=== PATIENT | female | born 1970 | race African-American/Black ===

== ENCOUNTER 2018-06-16 20:39 | Emergency (ER) | payer BC ==
--- NOTE | 2018-06-16 21:26 | ED ---
HPI Chest Pain - HPI Summary HPI Summary: This patient is a 48 year old F brought in by ambulance to [facility] with a chief complaint of sudden onset intermittent sharp, stabbing left anterior chest pain since 19:30. The patient notes that the pain lasts for about 45 seconds before lessening. Patient reports that the pain lessened [employer]. The patient rates the pain 2/10 in severity. Symptoms aggravated by nothing. Symptoms alleviated by nothing. Patient has hx anxiety. - History of Current Complaint Chief Complaint: EDChestPainROMI Time Seen by Provider: 06/16/18 20:52 Hx Obtained From: Patient Onset/Duration: Started Hours Ago, Atraumatic, Still Present Timing: Intermittent, Lasting Seconds - 45 sec Initial Severity: Moderate Current Severity: Mild Pain Intensity: 2 Pain Scale Used: 0-10 Numeric Chest Pain Location: Left Anterior Chest Pain Radiates: No Character: Sharp/Stabbing Aggravating Factor(s): Nothing Alleviating Factor(s): Nothing Associated Signs and Symptoms: Positive: Chest Pain - Allergy/Home Medications Allergies/Adverse Reactions: Allergies Allergy/AdvReac Type Severity Reaction Status Date / Time No Known Allergies Allergy Verified 06/16/18 20:59 Home Medications: Home Medications Gabapentin 1 tab PO DAILY 06/16/18 [History Confirmed 06/16/18] busPIRone TAB* 1 tab PO DAILY 06/16/18 [History Confirmed 06/16/18] PMH/Surg Hx/FS Hx/Imm Hx Cardiovascular History: Denies: Hx Hypertension Psychiatric History: Reports: Hx Anxiety - Surgical History Surgery Procedure, Year, and Place: none Infectious Disease History: No Infectious Disease History: Denies: Traveled Outside the [place] in Last 30 Days - Family History Known Family History: Negative: Diabetes - Social History Alcohol Use: Rare Substance Use Type: Reports: None Smoking Status (MU): Never Smoked Tobacco Review of Systems Negative: Fever Negative: Epistaxis Positive: Chest Pain Negative: Cough Negative: Vomiting All Other Systems Reviewed And Are Negative: Yes Physical Exam - Summary Physical Exam Summary: VITAL SIGNS: Reviewed. GENERAL: Patient is a well-developed and nourished FEMALE who is lying comfortable in the stretcher. Patient is not in any acute respiratory distress. HEAD AND FACE: No signs of trauma. No ecchymosis, hematomas or skull depressions. No sinus tenderness. EYES: PERRLA, EOMI x 2, No injected conjunctiva, no nystagmus. EARS: Hearing grossly intact. Ear canals and tympanic membranes are within normal limits. MOUTH: Oropharynx within normal limits. NECK: Supple, trachea is midline, no adenopathy, no JVD, no carotid bruit, no c- spine tenderness, neck with full ROM. CHEST: Symmetric, no tenderness at palpation LUNGS: Clear to auscultation bilaterally. No wheezing or crackles. CVS: Regular rate and rhythm, S1 and S2 present, no murmurs or gallops appreciated. ABDOMEN: Soft, non-tender. No signs of distention. No rebound no guarding, and no masses palpated. Bowel sounds are normal. EXTREMITIES: FROM in all major joints, no edema, no cyanosis or clubbing. NEURO: Alert and oriented x 3. No acute neurological deficits. Speech is normal and follows commands. SKIN: Dry and warm Triage Information Reviewed: Yes Vital Signs On Initial Exam: Initial Vitals Temp Pulse Resp BP Pulse Ox 98.5 F 61 16 132/74 100 06/16/18 20:51 06/16/18 20:51 06/16/18 20:51 06/16/18 20:51 06/16/18 20:51 Vital Signs Reviewed: Yes Diagnostics - Vital Signs Vital Signs Temp Pulse Resp BP Pulse Ox 06/16/18 20:51 98.5 F 61 16 132/74 100 - Laboratory Result Diagrams: 06/16/18 21:21 06/16/18 21:21 Lab Statement: Any lab studies that have been ordered have been reviewed, and results considered in the medical decision making process. - Radiology CXR Radiology Interpretation Completed By: ED Physician - Dr. Lane, pending official report Summary of Radiographic Findings: no acute process - EKG 20:48 Cardiac Rate: NL - at 58 bpm EKG Rhythm: Sinus Rhythm ST Segment: Normal Ectopy: None Summary of EKG Findings: sinus rhythm at 58 bpm with nml intervals, nml axis, and no ischemic changes. Chest Pain Course/Dx - Course Course Of Treatment: This patient is a 48 year old F with hx anxiety brought in by ambulance to [facility] with a chief complaint of sudden onset intermittent sharp , stabbing left anterior chest pain since 19:30. An EKG reveals sinus rhythm at 58 bpm with nml intervals, nml axis, and no ischemic changes. CXR reveals, per ED physician, no acute process. Test results with no significant abnormalities. Patient will be discharged home with follow up from cardiology for a cardiac stress test. Dx CP. The patient is agreeable with this plan. - Diagnoses Provider Diagnoses: Chest pain Discharge - Sign-Out/Discharge Documenting (check all that apply): Patient Departure - discharge home Patient Received Moderate/Deep Sedation with Procedure: No - Discharge Plan Condition: Stable Disposition: HOME Patient Education Materials: Chest Pain (ED) Referrals: Leilani Jarrett MD [Primary Care Provider] - Dwight Bucio MD [Medical Doctor] - 1 Day (follow up with Dr. Bucio, cloth shader, for a cardiac stress test) Additional Instructions: Follow up with cardiology in 1-2 days for a cardiac stress test. Return to the emergency department with any new or worsening symptoms. - Attestation Statements Document Initiated by Scribe: Yes Documenting Scribe: Marely Gruber Provider For Whom Scribe is Documenting (Include Credential): Yolanda Lane MD Scribe Attestation: Marely Maldonado, scribed for Yolanda Lane MD on 06/17/18 at 0104. Status of Scribe Document: Ready
[2018-06-16 21:35] LABS: ABS Basophils 0 10^3/ul (0-0.2); ABS Eosinophils 0.3 10^3/ul (0-0.6); ABS Lymphocytes 1.8 10^3/ul (1.0-4.8); ABS Monocytes 0.5 10^3/ul (0-0.8); ABS Neutrophils 1.9 10^3/ul (1.5-7.7); ABS Nucleated RBC 0 10^3/ul; Eosinophil % 6.1 %; Hematocrit 37 % (35-47); Hemoglobin 11.7 g/dl (12.0-16.0); Lymphocyte % 40.5 %; Mean Corpuscular HGB Conc 32 g/dl (31-36); Mean Corpuscular Hemoglobin 23 pg (27-31); Mean Corpuscular Volume 73 fL (80-97); Mean Platelet Volume 8.5 fL (7.4-10.4); Nucleated Red Blood Cells % 0.1; Platelet Count 298 10^3/ul (150-450); Red Blood Count 5.04 10^6/ul (4.00-5.40); Red Cell Distribution Width 15 % (10.5-15); White Blood Count 4.6 10^3/ul (3.5-10.8)
[2018-06-16 21:37] LABS: Activated Partial Thrombo Time 36.3 seconds (26.0-36.3); INR 0.99 (0.77-1.02)
[2018-06-16 21:46] LABS: ALT 13 U/L (7-52); AST 16 U/L (13-39); Albumin/Globulin Ratio 1.3 (1-3); Alkaline Phosphatase 57 U/L (34-104); Anion Gap 6 mmol/L (2-11); BUN/Creatinine Ratio 13.8 (8-20); Blood Urea Nitrogen 12 mg/dL (6-24); CO2 Carbon Dioxide 26 mmol/L (22-32); Calcium 9.9 mg/dL (8.6-10.3); Chloride 105 mmol/L (101-111); EGFR African American 84.1 (>60); EGFR Non-African American 69.5 (>60); Globulin 3.1 g/dL (2-4); Glucose 89 mg/dL (70-100); Sodium 137 mmol/L (135-145); Total Protein 7.1 g/dL (6.4-8.9)
[2018-06-16 21:53] LABS: HCG Pregnancy < 0.60 mIU/mL
[2018-06-17 01:13] VITALS: BP 121/67
== END 2018-06-17 01:12 | disposition home or self-care (01) ==
LOC: ED 20:39
DX: R07.89 Other chest pain (principal); R00.1 Bradycardia, unspecified; F41.9 Anxiety disorder, unspecified
CPT/HCPCS: 36415; 71045; 80053; 84484; 84702; 85025; 85610; 85730; 93005; 99283

== ENCOUNTER 2019-07-26 07:43 | Emergency (ER) | payer BC ==
--- OUTSIDE RECORDS SUMMARY | 2019-07-26 07:50 | XMS REPORT | Continuity of Care Document ---
:1970 External Reference #:[id number] Author Name KRISTI Garcia Address [address] [place] [address] Care Team Providers Name Role Phone Leilani Jarrett - Family Medicine Care Team Information Cash Register Balancer [phone] Paul Saab DO - Gastroenterology Care Team Information Cash Register Balancer [phone] Problems Active Problems Provider Date Allergic rhinitis Leilani Jarrett M.D. Onset: 04/11/2018 Adjustment disorder with anxious mood Leilani Jarrett M.D. Onset: 2017 Social History Type Date Description Comments Sex Unknown Tobacco Use Start: Unknown Never Smoked Cigarettes ETOH Use Social Alcohol 2 glasses of wine a week. red wine. Tobacco Use Start: Unknown Patient has never smoked Smoking Status Reviewed: 12/09/18 Patient has never smoked Exercise Exercises regularly uses exercise Type/Frequency equipment 2-3 times a week 30 minutes, and Aikido 2/week at [place]. Seat Belt/Car Seat Always uses seat belt Allergies, Adverse Reactions, Alerts Description No Known Drug Allergies Medications Active Medications SIG Qnty Indications Ordering Date Provider Azithromycin take 2 tablets 6tabs R50.9 Wu Arciniega 07/09/2019 250mg Tablets (500 mg) day 1 Brady Corona then 250 mg x 4 days. Buspirone HCL take one tablet 60tabs Leilani Dlae 10mg Tablets by mouth twice a Brady Jarrett day Levocetirizine 1 by mouth every Unknown Dihydrochloride day 5mg Tablets Montelukast Sodium 1 by mouth every Unknown 10mg day Tablets Olopatadine HCL 2 drops in r eye Unknown 0.2% twice a day to Solution three times a day as needed allergies. Ventolin HFA take 1-2 puffs Unknown 108(90Base) inhaled every 4 mcg/Act Aerosol hours as needed for wheezing or tightness in the chest Qnasl 2 sprays in each Unknown 80mcg/Act Aerosol nostril daily History Medications Tamiflu 1 by mouth twice 10caps Leilani Dale 06/12/2019 - 75mg Capsules daily Brady Jarrett 07/09/2019 Off Work Note medical excuse. B34.9 Leilani Dale 03/20/2019 - off work for Brady Jarrett 07/09/2019 03/21/19 Azithromycin 2 by mouth 6tabs J01.80 Leilani Dale 03/20/2019 - 250mg today. 1 by Brady Jarrett 07/09/2019 Tablets mouth daily x 4 Immunizations CPT Code Status Date Vaccine Lot # [id number] Given 02/28/2018 Tdap Tetanus, W Pertussis TG597 Vital Signs Date Vital Result Comment 07/09/2019 11:33am BP Systolic 120 mmHg BP Diastolic 82 mmHg Heart Rate 66 /min Body Temperature 96.7 F 03/20/2019 1:37pm BP Systolic 120 mmHg BP Diastolic 70 mmHg Heart Rate 82 /min Body Temperature 98.5 F Respiratory Rate 18 /min O2 % BldC Oximetry 97 % Weight 222.00 lb Results Test Acquired Date Facility Test Result H/L Range Note Laboratory test 03/20/2019 [facility] Quickstrep Negative Negative finding (607)- - Flu A&B (Fma) 03/20/2019 [facility] Influenza A Negative (607)- - Influenza B Negative Procedures Date Code Description Status 12/26/2018 [id number] Mammogram Completed 03/27/2018 [id number] Mammogram Completed Medical Devices Description No Information Available Encounters Type Date Location Provider Dx Diagnosis Office Visit 03/20/2019 [facility] Office Leilani Dale J02.9 Acute pharyngitis , 1:30p Brady Jarrett unspecified B34.9 Viral infection, unspecified Z12.31 Encntr screen mammogram for malignant neoplasm of breast J01.80 Other acute sinusitis Assessments Date Code Description Provider 07/09/2019 R50.9 Fever, unspecified KRISTI Garcia 07/09/2019 R51 Headache KRISTI Garcia 07/09/2019 J01.90 Acute sinusitis, unspecified KRISTI Garcia 03/20/2019 J02.9 Acute pharyngitis, unspecified Leilani Jarrett M.D. 03/20/2019 B34.9 Viral infection, unspecified Leilani Jarrett M.D. 03/20/2019 Z12.31 Encounter for screening mammogram for Leilani Jarrett M.D. malignant neoplasm of breast 03/20/2019 J01.80 Other acute sinusitis Leilani Jarrett M.D. Plan of Treatment 07/09/2019 - Jazmyne Merrill, PAR50.9 Fever, unspecifiedNew Medication: Azithromycin 250 mg - take 2 tablets (500 mg) day 1 then 250 mg x 4 days.New Labs:Flu A&B (Fma), Ordered: 07/09/19Comments:Supportive measures - tylenol / ibuprofenStart antibiotic- Azithromycin Use inhalers as you needCall if symptoms worsen or dont improve in the next few daysR51 KlfmlnonP41.90 Acute sinusitis, unspecifiedAllComments:PCMHMedication Management Patient Understands medications he's taking? Yes Are there Barriers to Adherence? No Has the patient been asked about herbal supplements and therapies, and OTC meds ? Yes Care Plan1. Patient has been queried about patient's goals/ preferences and functional/lifestyle goals at relevant visits. Yes If relevant, describe: N/A2. Treatment goals as explained to the patient: above3. Are there barriers to meeting treatment goals? No If Yes, please describe:4. Self-Management goals as described to the patient: Yes As always, we strongly encourage a healthy diet and making physical activity a part of your every day life. If you have questions about how or where to start, please contact the office. Functional Status Description No Information Available Mental Status Description No Information Available Referrals Description No Information Available
--- OUTSIDE RECORDS SUMMARY | 2019-07-26 07:50 | XMS REPORT | Continuity of Care Document ---
:1970 External Reference #:[id number] Author Name Leilani Jarrett M.D. Address [address] [place] [address] Care Team Providers Name Role Phone Leilani Jarrett - Family Medicine Care Team Information Plastic Outfitter Paul Saab DO - Gastroenterology Care Team Information Plastic Outfitter [phone] Problems Active Problems Provider Date Allergic rhinitis [...] week 30 minutes, and Aikido 2/week at [place]. Seat Belt/Car Seat Always uses seat belt Allergies, Adverse Reactions, Alerts Description No Known Drug Allergies Medications Active Medications SIG Qnty Indications Ordering Date Provider Azithromycin 2 by mouth today. 6tabs J01.90 Leilani Dale 07/25/2019 250mg Tablets 1 by mouth daily Brady Jarrett x 4 Vitamin D take 1 capsule by 1caps E55.9 Leilani Dale 07/25/2019 (Ergocalciferol) mouth once Brady Jarrett 1.25mg (16560 Ut) Capsules Azithromycin take 2 tablets 6tabs R50.9 Wu Arciniega 07/09/2019 250mg Tablets (500 mg) day 1 Brady Corona then 250 mg x 4 days. Buspirone HCL take one tablet 60tabs Leilani Dale 10mg Tablets by mouth twice a Brady [...] CPT Code Status Date Vaccine Lot # [id number] Given 02/28/2018 Tdap Tetanus, W Pertussis TG597 [...] Date Facility Test Result H/L Range Note Flu A&B (Fma) 07/09/2019 [facility] Influenza A negative (607)- - Influenza B negative Laboratory test finding 03/20/2019 [facility] Quickstrep Negative Negative (607)- - Flu A&B (Fma) 03/20/2019 [facility] Influenza A Negative (607)- - Influenza B Negative Procedures Date Code Description Status 12/26/2018 [id number] Mammogram Completed 03/27/2018 [id number] Mammogram Completed Medical Devices Description No Information Available Encounters Type Date Location Provider Dx Diagnosis Office Visit 07/09/2019 [facility] Jazmyne Merrill, R50.9 Fever, unspecified 11:30a [place] R51 Headache J01.90 Acute sinusitis, unspecified Office Visit 03/20/2019 1:30p [facility] Leilani Haley02.9 Acute pharyngitis, Brady Jarrett unspecified B34.9 Viral infection, unspecified Z12.31 Encntr screen mammogram for malignant neoplasm of breast J01.80 Other acute sinusitis Assessments Date Code Description Provider 07/25/2019 J01.90 Acute sinusitis, unspecified Leilani Jarrett M.D. 07/25/2019 E55.9 Vitamin D deficiency, unspecified Leilani Jarrett M.D. 07/09/2019 R50.9 Fever, unspecified KRISTI Garcia 07/09/2019 R51 Headache Jazmyne Merrill, KRISTI 07/09/2019 J01.90 Acute sinusitis, unspecified Jazmyne Merrill, KRISTI 03/20/2019 J02.9 Acute pharyngitis, unspecified Leilani Jarrett M.D. 03/20/2019 B34.9 Viral infection, unspecified Leilani Jarrett M.D. 03/20/2019 Z12.31 Encounter for screening mammogram for Leilani Jarrett M.D. malignant neoplasm of breast 03/20/2019 J01.80 Other acute sinusitis Leilani Jarrett M.D. Plan of Treatment 07/25/2019 - Leilani Jarrett M.D.J01.90 Acute sinusitis, unspecifiedNew Medication:Azithromycin 250 mg - 2 by mouth today. 1 by mouth daily x 4E55.9 Vitamin D deficiency, unspecifiedNew Medication:Vitamin D (Ergocalciferol) 1.25 mg (19172 Ut) - take 1 capsule by mouth onceAllComments:Medication Management Patient Understands medications she 's taking? Yes No Are there Barriers to Adherence? Yes No Has the patient been asked about herbal supplements and therapies, and OTC meds? Yes No Care Plan1. Patient has been queried about patient's goals/preferences and functional/ lifestyle goals at relevant visits. If relevant, describe: na2. Treatment goals as explained to the patient: above3. Are there barriers to meeting treatment goals? Yes No If Yes, please describe:4. Self-Management goals as described to the patient: Yes No Functional Status Description No Information Available Mental Status Description No Information Available Referrals Description No Information Available
--- OUTSIDE RECORDS SUMMARY | 2019-07-26 07:50 | XMS REPORT | Continuity of Care Document ---
:1970 External Reference #:[id number] Author Name MEDINA KaiserP-C Address [address] [place] [id number] Care Team Providers Name Role Phone Leilani Jarrett M.D. - Family Care Team Information Immigration Case Manager Medicine Problems Active Problems Provider Date Cough Elizabeth Perdomo M.D. Onset: 01/30/2018 Allergic rhinitis Elizabeth Perdomo M.D. Onset: 01/30/2018 Social History Type Date Description Comments Sex Unknown ETOH Use Occasionally consumes alcohol Tobacco Use Start: Unknown Patient has never smoked Recreational Drug Use Never Used Drugs Allergies, Adverse Reactions, Alerts Description No Known Drug Allergies Medications Active Medications SIG Qnty Indications Ordering Date Provider Breo Ellipta 1 puff inhaled 3units J30.1 Joan 06/30/2019 once daily Uldrich, BARGE CAPTAIN-C 200-25mcg/Inh Aerosol Breo Ellipta 1 puff inhaled 3units J30.1 Joan 06/30/2019 once daily Uldrich, BARGE CAPTAIN-C 200-25mcg/Inh Aerosol Qnasl 1-2 sprays in 10.600gm J30.1 Joan 11/29/2018 80mcg/Act Aerosol each nostril Uldrich, BARGE CAPTAIN-C daily Qvar Redihaler 2 puff twice a 1units J30.1 Joan 11/29/2018 80mcg/Act day Uldrich, BARGE CAPTAIN-C Aerosol Hydrocortisone 1 drop twice 60ml J30.1 Joan 10/22/2018 Butyrate daily Uldrich, BARGE CAPTAIN-C 0.1% Solution Ventolin HFA 2 puffs 18gm R05 Joan 01/30/2018 108(90Base) inhalation every Tate, BARGE CAPTAIN-C mcg/Act Aerosol 4 hours as needed Levocetirizine 1 by mouth every 90tabs J30.9 Joan 01/30/2018 Dihydrochloride day Ulgeovanni, BARGE CAPTAIN-C 5mg Tablets Montelukast Sodium 1 tab by mouth 90tabs J30.9 Joan 01/30/2018 10mg every night at geovanni, BARGE CAPTAIN-C Tablets bedtime Buspirone HCL Unknown 10mg Tablets Medications Administered in Office Medication SIG Qnty Indications Ordering Provider Date Injection Allergy Injection 07/08/2018 Injection Injection Allergy Injection 05/24/2018 Injection Injection Allergy Injection 04/19/2018 Injection Injection Allergy Injection 04/12/2018 Injection Injection Allergy Injection 04/05/2018 Injection Injection Allergy Injection 03/27/2018 Injection Injection Allergy Injection 03/18/2018 Injection Injection Allergy Injection 03/11/2018 Injection Immunizations CPT Code Status Date Vaccine Lot # [id number] Given Unknown Influenza Vaccine Vital Signs Date Vital Result Comment 06/30/2019 2:57pm Height 65 inches 5'5" Weight 213.00 lb Weight 96.617 kg Respiratory Rate 12 /min Heart Rate 67 /min O2 % BldC Oximetry 99 % BP Systolic 121 mmHg BP Diastolic 72 mmHg Fractional Exhaled Nitric Oxide 25 BMI (Body Mass Index) 35.4 kg/m2 11/29/2018 3:40pm Height 65 inches 5'5" Weight 228.00 lb Weight 103.421 kg Respiratory Rate 16 /min Heart Rate 85 /min O2 % BldC Oximetry 98 % BP Systolic 112 mmHg BP Diastolic 67 mmHg Asthma Control Test 19 Fractional Exhaled Nitric Oxide 21 BMI (Body Mass Index) 37.9 kg/m2 Results Description No Information Available Procedures Date Code Description Status 06/30/2019 27438 Nitric Oxide Gas Determination Completed Medical Devices Description No Information Available Encounters Description No Information Available Assessments Date Code Description Provider 06/30/2019 J30.1 Allergic rhinitis due to pollen TRACEY Kaiser 06/30/2019 J30.81 Allergic rhinitis due to animal (cat) (dog) TRACEY Kaiser hair and dander Plan of Treatment No Information Available Functional Status Description No Information Available Mental Status Description No Information Available Referrals Description No Information Available
--- NOTE | 2019-07-26 08:06 | UC ---
FLU HPI - HPI Summary HPI Summary: patient complains of cough, fever. sore throat, fatigue, body aches - patient and son were both exposed to COVID positive child 8 days ago. She became symptomatic 5 days after exposure, called PCP next day and started Z-jenna yesterday. Patient has a hx of asthma and uses albuterol, Breo she has had a fever of 99.6 at home, last used Tylenol this am. - History of Current Complaint Stated Complaint: FEVER/CHILLS Time Seen by Provider: 07/26/19 07:55 Hx Obtained From: Patient ?: No Onset/Duration: Gradual Onset Severity Currently: Moderate Severity Initially: Mild Associated Signs & Symptoms: Positive: Fever, Cough, Sore Throat, Nasal Congestion Related Hx: Possible Flu/Infectious Exposure - COVID -19 - Allergy/Home Medications Allergies/Adverse Reactions: Allergies Allergy/AdvReac Type Severity Reaction Status Date / Time No Known Allergies Allergy Verified 07/26/19 08:42 Home Medications: Home Medications Albuterol HFA INHALER* [Ventolin HFA Inhaler*] 1 puff INH Q4HR 07/26/19 [ History Confirmed 07/26/19] Fluticasone/Vilanterol [Breo Ellipta 200-25 Mcg INH] 1 puff INH DAILY WITH MEAL 07/26/19 [History Confirmed 07/26/19] LevoCETirizine TAB (NF) [Xyzal TAB (NF)] 1 tab PO DAILY WITH MEAL 07/26/19 [ History Confirmed 07/26/19] Montelukast Sodium TAB* [Singulair 10 MG TAB*] 1 tab PO DAILY 07/26/19 [History Confirmed 07/26/19] PMH/Surg Hx/FS Hx/Imm Hx Previously Healthy: Yes Respiratory History: Asthma Psychological History: Anxiety - Surgical History Surgery Procedure, Year, and Place: none - Family History Known Family History: Negative: Hypertension, Diabetes - Social History Occupation: Employed Full-time Lives: With Family Alcohol Use: Rare Substance Use Type: None Smoking Status (MU): Never Smoked Tobacco Review of Systems All Other Systems Reviewed And Are Negative: Yes Constitutional: Positive: Fever, Fatigue Skin: Positive: Negative. Negative: Rash ENT: Positive: Sore Throat, Sinus Congestion. Negative: Ear Ache Respiratory: Positive: Cough. Negative: Shortness Of Breath Cardiovascular: Positive: Negative. Negative: Chest Pain Musculoskeletal: Positive: Negative, Other: - body aches Neurological/Mental Status: Positive: Negative. Negative: Headache Psychological: Positive: Negative Is Patient Immunocompromised?: No Physical Exam - Summary Physical Exam Summary: To decrease the risk of transmission of possible COVID 19 this interview was done with telemedicine which does limit the physical examination Triage Information Reviewed: Yes Appearance: Well-Appearing, No Pain Distress, Well-Nourished Vital Signs Reviewed: Yes Eyes: Positive: Conjunctiva Clear ENT: Positive: Nasal congestion, Other - PND (video conference) Respiratory Exam: Other - No respiratory distress Musculoskeletal Exam: Normal Musculoskeletal: Positive: Strength Intact - ambulatory, ROM Intact Neurological Exam: Normal Neurological: Positive: Alert Skin Exam: Normal Skin: Negative: Rashes Flu Course/Dx - Course Course Of Treatment: Strep and flu were negative. Patient has had her symptoms for 8 days. SHe is currently in no respiratory distress and 02 Sat 100% on R/A With patients symptoms worsening over past few days, this could also be COVID 19 virus and therefore a COVID 19 test was obtained. Patient will follow-up with [facility]. If the patient starts to feel worse they agree to report to the emergency department. - Differential Dx/Diagnosis Differential Diagnosis/HQI/PQRI: Influenza, Upper Respiratory Infection, Other - COVID 19 Provider Diagnosis: Bronchitis Discharge ED - Sign-Out/Discharge Documenting (check all that apply): Patient Departure All imaging exams completed and their final reports reviewed: No Studies - Discharge Plan Condition: Stable Disposition: HOME Patient Education Materials: Acute Bronchitis (ED) Forms: COVID-19 Tested & Isolation Referrals: Leilani Jarrett MD [Primary Care Provider] - 2 Days (Call in 2 days if no better ) Additional Instructions: Your Strep and flu tests were negative. Given your symptoms, this could also be COVID 19 virus and therefore a COVID 19 test was obtained. Please follow-up with [facility]. If your symptoms worsen and you start to have difficulty breathing please call the Emergency room to alert them that you will be arriving for evaluation - Billing Disposition and Condition Condition: STABLE Disposition: Home
[2019-07-26 08:49] LABS: Influenza A Molecular Negative (Negative); Influenza B Molecular Negative (Negative)
[2019-07-26 08:56] VITALS: BP 123/75
== END 2019-07-26 09:27 | disposition home or self-care (01) ==
LOC: UCEAST 07:43
DX: J45.909 Unspecified asthma, uncomplicated (principal); Z20.828 Contact with and (suspected) exposure to other viral communicable diseases
CPT/HCPCS: 87651; 99211; G0463; U0002